=== PATIENT | female | born 1985 | race Caucasian/White ===

== ENCOUNTER 2021-08-15 07:52 | Outpatient (CLI) | payer BC, SELFPAY ==
[2021-08-15 08:11] VITALS: BP 130/90; BP 150/94; PULSE 87; PULSE 94; RESP 17; TEMP 36.8; O2SAT 97; O2SAT 98; BMI 31.9
[2021-08-15 08:55] VITALS: BP 145/93
[2021-08-15 09:03] VITALS: BP 143/92; PULSE 87; RESP 17; TEMP 36.8; O2SAT 98
[2021-08-15 10:01] VITALS: BP 130/90; PULSE 87; RESP 17; TEMP 36.8; O2SAT 98
== END 2021-08-15 07:53 | disposition home or self-care (01) ==
PROVIDERS: PCP Nurse Practitioner Family; Visit Provider Nurse Practitioner Family
DX: U07.1 COVID-19 (principal)
CPT/HCPCS: 96365